=== PATIENT | female | born 1985 | race Caucasian/White ===

== ENCOUNTER 2020-05-27 02:01 | Emergency (ER) | payer BC ==
[~2020-05-27] VITALS: Ht 180.3 cm; Wt 118.2 kg
[2020-05-27] MEDS ORDERED: LIDOcaine 1% W/epiNEPHrine 1:100,000 20ml vial SQ ONE (02:10)
--- NOTE | 2020-05-27 02:19 | NUR ---
DR SOLORZANO IN ROOM SUTURING LACERATIONS LEFT ARM
[2020-05-27] MEDS ORDERED: TETanus/Pertussis (Acell)/Diphther VAC/PF (Tdap-Adult) 0.5ml syringe IMVAC ONE (02:30)
[2020-05-27 02:39] VITALS: BP 122/88
== END 2020-05-27 02:42 | disposition home or self-care (01) ==
LOC: ER 02:02
DX: S51.812A Laceration without foreign body of left forearm, initial encounter (principal); Z72.89 Other problems related to lifestyle; W26.0XXA Contact with knife, initial encounter; Y93.89 Activity, other specified; Y92.89 Other specified places as the place of occurrence of the external cause; Y99.8 Other external cause status
CPT/HCPCS: 12001; 90471; 90715; 99283